=== PATIENT | female | born 1955 | race Caucasian/White ===

== ENCOUNTER 2016-05-24 17:01 | Emergency (ER) ==
[2016-05-24 17:33] LABS: MANUAL DIFF NEEDED? NO
[2016-05-24 17:37] LABS: BASO% 0.4 % (0.0-0.8); EOS# 0.57 X1000 (0.0-0.7); EOS% 4.3 % (0.0-10.0); HEMATOCRIT 46.2 % (37.0-47.0); HEMOGLOBIN 15.5 g/dL (12.0-16.0); IMM GRAN# 0.05 X1000 (0.0-0.04); IMM GRAN% 0.4 % (0.0-0.5); LYMPH# 3.86 X1000 (1.2-3.4); LYMPH% 29.3 % (20.5-51.1); MCH 27.5 PG (27-31); MCHC 33.5 g/dL (33-37); MCV 81.9 FL (81-99); MONO# 1.19 X1000 (0.11-0.59); MPV 10.5 FL (7.4-10.4); NEUT% 56.6 % (42.2-75.2); PLT 391 X1000 (130-400); RBC 5.64 XMIL (4.2-5.4)
[2016-05-24 17:44] LABS: INR 1.03; PROTIME 10.9 Seconds (9.2-11.7); PTT 29.6 Seconds (22.0-36.0)
[2016-05-24 18:00] LABS: ALBUMIN 3.9 g/dL (3.5-5.0); CALCIUM 9.4 mg/dL (8.8-10.2); POTASSIUM 3.5 mmol/L (3.5-5.1); TOTAL BILIRUBIN 0.2 mg/dL (0.20-1.00); TOTAL PROTEIN 7.7 g/dL (6.3-8.3)
--- NOTE | 2016-05-24 18:32 | ED EKG INTERP ---
EKG Interpretation - EKG Time of EKG reading by physician:: 17:19 EKG Read and Signed by:: Rosa Martinez Jr EKG Interpretation (*Must complete 3 of following elements*): Normal Rate: 72 Rhythm: Normal sinus rhythm Attestation - Scribe Verification/Attestation Scribe:: Joesph Odonnell Acting as Scribe for:: Rosa Martinez Jr Scribe documention review:: This chart was documented by a scribe and accurately reflects the service the provider performed and the decisions made by the provider.
--- NOTE | 2016-05-24 19:02 | PROVIDER DOCUMENTATION ---
HPI-Chest Pain - General Source: patient - History of Present Illness-CP Location: reports: substernal Chest Pain Radiation: reports: other (L anterior chest) Quality of Pain: reports: cramping, tightness Severity in ED: moderate Onset/Duration: 3 days ago Timing: still present, intermittent Context/Activities at Onset: reports: rest Modifying Factors: improves with: nothing Associated Symptoms: reports: diaphoresis, dizziness, shortness of breath, weakness. denies: abdominal pain, back pain, edema, fatigue, fever/chills, headache, heartburn, nausea, rash, swelling/lump in chest, syncope, vomiting Similar Symptoms Previously?: Yes <Joesph Odonnell - Last Filed: 05/24/16 20:16> <Halley Beltran - Last Filed: 05/24/16 20:20> - General Chief Complaint: Chest Pain Stated Complaint: CP Time Seen by Provider: 05/24/16 18:13 Allergies/Adverse Reactions: Patient Allergies Allergy/AdvReac Type Severity Reaction Status Date / Time Penicillins Allergy RASH Verified 05/24/16 20:02 Home Medications: Home Medication List Medication Instructions Recorded Confirmed Last Taken Type Atorvastatin Calcium 80 mg PO HS 05/24/16 05/24/16 05/23/16 History Chlorthalidone 25 mg PO DAILY 05/24/16 05/24/16 05/23/16 History Clopidogrel Bisulfate [Plavix] 75 mg PO DAILY 05/24/16 05/24/16 04/23/16 History Clopidogrel Bisulfate [Plavix] 75 mg PO DAILY #30 tablet 05/24/16 Unknown Rx Dicyclomine [Bentyl] 10 mg PO TID AC 05/24/16 05/24/16 05/23/16 History Fluoxetine HCl [Prozac] 20 mg PO DAILY 05/24/16 05/24/16 04/23/16 History Levofloxacin [Levaquin] 750 mg PO DAILY #9 tablet 05/24/16 Unknown Rx Losartan [Cozaar] 50 mg PO DAILY 05/24/16 05/24/16 05/23/16 History Metoprolol Succinate E.r. [Toprol 25 mg PO DAILY 05/24/16 05/24/16 05/23/16 History Xl] Spironolactone [Aldactone] 25 mg PO DAILY 02/05/24/16 05/23/16 History Tizanidine [Zanaflex] 4 mg PO QHS 05/24/16 05/24/16 05/23/16 History - History of Present Illness-CP Nature of Presenting Problem: Pt is a 60 yof who presents to ER with CC of substernal chest pain that radiates to L anterior chest that started when pt was at rest. Pt has hx of cardiac stent placement in 2003 and 2014 and reports that she has been out of her plavix and prozac x1 month and reports that the way she feels now resembles both a previous PR and panic attack. Pt's doctor is based out of [facility]. On exam, pt is tearful, but otherwise normal. (Joesph Odonnell) Review of Systems - Adult - REVIEW OF SYSTEMS - ADULT Constitutional: reports: fatique. denies: chills, fever, night sweats Eyes: reports: no symptoms reported Ears, Nose, Mouth & Throat: reports: no symptoms reported Cardiovascular: reports: chest pain, other (Out of plavix). denies: edema, heart murmur, irregular heart rate, orthopnea, palpitations, poor circulation, PND, syncope Respiratory: reports: shortness of breath. denies: chronic cough, cough, dyspnea on exertion, excessive sputum production, hemoptysis, pleurisy, wheezing Gastrointestinal: reports: no symptoms reported Genitourinary: reports: no symptoms reported Musculoskeletal: reports: no symptoms reported Integumentary: reports: no symptoms reported Neurological: denies: ataxia, dizziness/vertigo, headache/migraines, loss of balance, numbness, paresthesia, seizure, slurred speech, syncope, tremors Psychiatric: reports: anxiety, other (out of prozac). denies: anti-depressant use, alcohol/drug dependence, depression, emotional problems, insomnia, panic attacks, suicidal thoughts Endocrine: reports: no symptoms reported Hematologic/Lymphatic: reports: no symptoms reported Allergic/Immunologic: reports: no symptoms reported All Other Systems: Reviewed and Negative <Joesph Odonnell - Last Filed: 05/24/16 20:16> Past History - Adult - PAST MEDICAL HISTORY-ADULT Review of Records: reports: Nursing Assessment Review, Medications Reviewed - IMMUNIZATION STATUS Childhood Immunizations: See Nurse Assessment Flu Vaccine: See Nurse Assessment <Joesph Odonnell - Last Filed: 05/24/16 20:16> Physical Exam-General - PHYSICAL EXAM-ADULT Initial Vital Signs Reviewed: Yes - CONSTITUTIONAL General Appearance: appears well, alert, moderate distress, anxious. negative: no apparent distress, mild distress, lethargic, slow to respond, obtunded, combative - RESPIRATORY Respiratory: chest non-tender, lungs clear, normal breath sounds. negative: respiratory distress, decreased breath sounds, accessory muscle use, wheezing - CARDIOVASCULAR Cardiovascular: normal peripheral pulses, regular rate, rhythm. negative: bradycardia, tachycardia, irregularly irregular - CHEST (BREASTS) Chest/Breast: no masses/lumps, no tenderness. negative: tenderness, mass/lump noted - GASTROINTESTINAL (ABDOMEN) Abdominal Exam: normal bowel sounds, non tender, soft. negative: abnormal bowel sounds, distended, guarding, rigid, rebound, tenderness, mass - NEUROLOGIC Neurologic: grossly normal, no motor/sensory deficits. negative: facial droop, focal weakness, motor weakness, sensory deficit - PSYCHIATRIC Psych/Mental Status: normal thought content, normal thought process, oriented x 3, anxious, tearful <Joesph Odonnell - Last Filed: 05/24/16 20:16> Progress - EKG 1 Time of EKG reading by physician:: 19:31 EKG Read and Signed by:: Rosa Martinez Jr EKG Interpretation (*Must complete 3 of following elements*): Normal Rate: 67 Rhythm: Normal sinus rhythm - XRAY 1 XRAY: Bilateral XRAY Study: Chest Impression: See EMR Report XRAY Interpretation: LLL infiltrate, ER preliminary reading <Joesph Odonnell - Last Filed: 05/24/16 20:16> <Halley Beltran - Last Filed: 05/24/16 20:20> - PLAN OF CARE/RESULTS Progress/Plan/Lab Results: Vital Signs Temp Pulse Resp BP Pulse Ox 05/24/16 17:22 97.8 F 76 20 143/84 97 Penicillins Allergy (Verified 05/24/16 20:02) RASH Atorvastatin Calcium 80 mg PO HS 05/24/16 Chlorthalidone 25 mg PO DAILY 05/24/16 Clopidogrel Bisulfate [Plavix] 75 mg PO DAILY 05/24/16 Dicyclomine [Bentyl] 10 mg PO TID AC 05/24/16 Fluoxetine HCl [Prozac] 20 mg PO DAILY 05/24/16 Losartan [Cozaar] 50 mg PO DAILY 05/24/16 Metoprolol Succinate E.r. [Toprol Xl] 25 mg PO DAILY 05/24/16 Spironolactone [Aldactone] 25 mg PO DAILY 05/24/16 Tizanidine [Zanaflex] 4 mg PO QHS 05/24/16 Laboratory 05/24/16 05/24/16 05/24/16 19:25 19:25 17:26 WBC RBC Hgb Hct MCV MCH MCHC RDW Std Deviation Plt Count MPV Immature Gran % (Auto) Neut % (Auto) Lymph % (Auto) [place] % (Auto) Eos % (Auto) Baso % (Auto) Immature Gran # (Auto) Neut # (Auto) Lymph # (Auto) [place] # (Auto) Eos # (Auto) Baso # (Auto) PT INR PTT (Actin FS) D-Dimer Sodium Potassium Chloride Carbon Dioxide Anion Gap BUN Creatinine Estimated GFR/1.73 m2 BUN/Creatinine Ratio Glucose Calculated Osmolality Calcium Magnesium Total Bilirubin AST ALT Alkaline Phosphatase Creatine Kinase 55 Troponin T < 0.010 < 0.010 Yqu-[id number]-Bykgbybcebk Pept Total Protein Albumin Globulin Albumin/Globulin Ratio 05/24/16 05/24/16 05/24/16 17:26 17:26 17:26 WBC RBC Hgb Hct MCV MCH MCHC RDW Std Deviation Plt Count MPV Immature Gran % (Auto) Neut % (Auto) Lymph % (Auto) [place] % (Auto) Eos % (Auto) Baso % (Auto) Immature Gran # (Auto) Neut # (Auto) Lymph # (Auto) [place] # (Auto) Eos # (Auto) Baso # (Auto) PT 10.9 INR 1.03 PTT (Actin FS) 29.6 D-Dimer 0.43 Sodium Potassium Chloride Carbon Dioxide Anion Gap BUN Creatinine Estimated GFR/1.73 m2 BUN/Creatinine Ratio Glucose Calculated Osmolality Calcium Magnesium Total Bilirubin AST ALT Alkaline Phosphatase Creatine Kinase Troponin T Odh-T-Khrpicdquih Pept 56 Total Protein Albumin Globulin Albumin/Globulin Ratio 05/24/16 05/24/16 17:26 17:26 WBC 13.17 H RBC 5.64 H Hgb 15.5 Hct 46.2 MCV 81.9 MCH 27.5 MCHC 33.5 RDW Std Deviation 16.0 H Plt Count 391 MPV 10.5 H Immature Gran % (Auto) 0.4 Neut % (Auto) 56.6 Lymph % (Auto) 29.3 [place] % (Auto) 9.0 Eos % (Auto) 4.3 Baso % (Auto) 0.4 Immature Gran # (Auto) 0.05 H Neut # (Auto) 7.45 H Lymph # (Auto) 3.86 H [place] # (Auto) 1.19 H Eos # (Auto) 0.57 Baso # (Auto) 0.05 PT INR PTT (Actin FS) D-Dimer Sodium 135 L Potassium 3.5 Chloride 95 L Carbon Dioxide 25 Anion Gap 15 BUN 21 Creatinine 1.1 H Estimated GFR/1.73 m2 51 BUN/Creatinine Ratio 19 Glucose 107 H Calculated Osmolality 274 Calcium 9.4 Magnesium 2.0 Total Bilirubin 0.20 AST 23 ALT 26 Alkaline Phosphatase 179 H Creatine Kinase 54 Troponin T Mnt-Q-Totscqfqrvn Pept Total Protein 7.7 Albumin 3.9 Globulin 3.8 Albumin/Globulin Ratio 1.0 Orders Category Date Time Status CHEST-2 VIEWS [RAD] Stat Exams 05/24/16 17:14 Taken CBC WITH ELECTRONIC DIFF [HEME] Stat Lab 05/24/16 17:26 Completed CK PROFILE [SP CHEM] Stat Lab 05/24/16 17:26 Completed CK PROFILE [SP CHEM] Stat Lab 05/24/16 19:25 Completed COMPREHENSIVE METABOLIC PANEL [CHEM] Stat Lab 05/24/16 17:26 Completed D-DIMER [CHEM] Stat Lab 05/24/16 17:26 Completed MAGNESIUM [CHEM] Stat Lab 05/24/16 17:26 Completed PRO B-NATRIURETIC PEPTIDE Stat Lab 05/24/16 17:26 Completed PROTIME WITH INR [COAG] Stat Lab 05/24/16 17:26 Completed PTT [COAG] Stat Lab 05/24/16 17:26 Completed TROPONIN T Stat Lab 05/24/16 17:26 Completed TROPONIN T Stat Lab 05/24/16 19:25 Completed Levofloxacin [Levaquin] Med 05/24/16 20:16 Discontinued 750 mg PO NOW ONE EKG [EKG] Stat Ther 05/24/16 17:14 Ordered EKG [EKG] Stat Ther 05/24/16 18:43 Ordered Discussed patient with Dr. Martinez, who agrees with treatment, disposition and plan. (Halley Beltran) Departure <Joesph Odonnell - Last Filed: 05/24/16 20:16> - Departure Time of Disposition Order: 20:18 Certified Medical Emergency: Emergent <Halley Beltran - Last Filed: 05/24/16 20:20> - Departure DIAGNOSIS: Atypical chest pain LLL pneumonia Qualifiers: Pneumonia type: due to unspecified organism Qualified Code(s): J18.1 - Lobar pneumonia, unspecified organism Disposition: HOME 01 Condition: Stable Additional Instructions: Follow up with your technical program manager in the morning ED Follow Up Instructions: You have been treated by a care provider in the Emergency Department. These instructions are being provided to you so you can have an understanding of how to care for yourself upon discharge. Upon discharge from the Emergency Department, you are responsible for making arrangements for follow-up care by a physician of your choice. Take all prescribed medications as directed. Return to the Emergency Department immediately for any new or worsening symptoms. You may call the Physician Referral phone number at [phone] to obtain a list of Physicians who are taking new patients. Prescriptions: Levofloxacin [Levaquin] 750 mg PO DAILY #9 tablet Clopidogrel Bisulfate [Plavix] 75 mg PO DAILY #30 tablet Attestation - Scribe Verification/Attestation Scribe:: Joesph Odonnell Acting as Scribe for:: Halley Beltran Scribe documention review:: This chart was documented by a scribe and accurately reflects the service the provider performed and the decisions made by the provider. <Joesph Odonnell - Last Filed: 05/24/16 20:16> Physician Attestation
[2016-05-24] MEDS ORDERED: LEVAQUIN PO ONE (20:16)
[2016-05-24] MEDS ORDERED: TYLENOL PO ONE (20:20)
[2016-05-24 20:22] VITALS: BP 149/88
--- NOTE | 2016-05-25 05:40 | EKG Report ---
Test Performed on : 05/24/2016 5:19:54 PM Test Reason : Chest Pain Blood Pressure : / mmHG Vent. Rate : 072 BPM Atrial Rate : 072 BPM P-R Int : 164 ms QRS Dur : 070 ms QT Int : 426 ms P-R-T Axes : 046 019 047 degrees QTc Int : 466 ms Normal sinus rhythm. Normal ECG No previous ECGs available Unconfirmed Result
--- NOTE | 2016-05-25 05:43 | EKG Report ---
Test Performed on : 05/24/2016 7:31:59 PM Test Reason : cp Blood Pressure : / mmHG Vent. Rate : 067 BPM Atrial Rate : 067 BPM P-R Int : 168 ms QRS Dur : 072 ms QT Int : 448 ms P-R-T Axes : 048 030 059 degrees QTc Int : 473 ms Normal sinus rhythm. Normal ECG When compared with ECG of 24-MAY-2016 17:19, (Unconfirmed) No significant change was found Unconfirmed Result
--- NOTE | 2016-05-25 07:44 | Diag Imaging Result Document ---
PROCEDURE NAME: CHEST-2 VIEWS - 05/24/2016 FRONTAL AND LATERAL CHEST, TWO VIEWS: FINDINGS: The lungs are well expanded. The heart is not enlarged. The vessels are not distended. No pleural effusions. No consolidation. No free air beneath the diaphragm. IMPRESSION: No acute abnormality.
== END 2016-05-24 20:34 | disposition home or self-care (01) ==
LOC: ED 17:01
DX: J18.1 Lobar pneumonia, unspecified organism (principal); R07.89 Other chest pain; R61 Generalized hyperhidrosis; R42 Dizziness and giddiness; R06.02 Shortness of breath; R53.1 Weakness; R53.83 Other fatigue; I25.2 Old myocardial infarction; F41.8 Other specified anxiety disorders; Z79.02 Long term (current) use of antithrombotics/antiplatelets; Z79.899 Other long term (current) drug therapy; Z95.5 Presence of coronary angioplasty implant and graft
CPT/HCPCS: 71020; 80053; 82550; 83735; 83880; 84484; 85025; 85379; 85610; 85730; 93005